=== PATIENT | male | born 1975 | race African-American/Black ===

== ENCOUNTER 2021-06-26 15:30 | Emergency (ER) | payer SELFPAY ==
[~2021-06-26] VITALS: Ht 167.6 cm; Wt 65.8 kg
[2021-06-26] MEDS ORDERED: CLONIDINE HCL 0.2 MG TAB PO STA (15:39)
[2021-06-26] MEDS ORDERED: CLONIDINE HCL0.2 MG PO (16:39)
== END 2021-06-26 16:46 | disposition home or self-care (01) ==
LOC: ER 15:42
DX: I10 Essential (primary) hypertension (principal); R51.9 Headache, unspecified
CPT/HCPCS: 70450; 93005; 99283